=== PATIENT | male | born 1965 | race Two or more races ===

== ENCOUNTER 2025-05-03 00:14 | Emergency (ER) | payer OTHER ==
[~2025-05-03] VITALS: Ht 185.4 cm; Wt 99.8 kg
[2025-05-03 00:47] LABS: PLATELET COUNT (AUTO) 274 K/uL (150-450); RED BLOOD CELL COUNT(AUTO) 5.27 MIL/uL (4.5-6.0); RED CELL DISTRIBUTION WIDTH 13.4 % (11.5-15.0); WHITE BLOOD COUNT (AUTO) 10.5 K/uL (4.3-11.0)
[2025-05-03 00:55] LABS: CALCIUM, SERUM 9.7 mg/dL (8.5-10.1); CREATININE 2.4 mg/dL (0.6-1.3); SODIUM SERUM 142 mmol/L (136-145); UREA NITROGEN, BLOOD 28 mg/dL (7-18)
[2025-05-03 05:39] VITALS: BP 114/79; TEMP 97.8; O2SAT 98
== END 2025-05-03 05:40 | disposition home or self-care (01) ==
LOC: ER 00:16 → TELE 02:09 → UNDOADMIN 02:09 → ER 05:40 → UNDODISIN 07:35
DX: R07.9 Chest pain, unspecified (principal); I10 Essential (primary) hypertension; E11.9 Type 2 diabetes mellitus without complications; Z60.2 Problems related to living alone
CPT/HCPCS: 36415; 71045-TC; 80048-TC; 83880; 84484-TC; 85025-TC; G0378